=== PATIENT | female | born 1955 | race Native Hawaiian/Other Pacific Islander ===

== ENCOUNTER 2017-02-16 06:48 | Day surgery (SDC) | payer MEDICAID ==
[2017-02-16 07:16] VITALS: BMI 25.0
[2017-02-16] MEDS ORDERED: Propofol 10 mg/ml Inj (20 ML) ONE ×2 (10:25)
[2017-02-16] MEDS ORDERED: Lactated Ringer's 500 ML IV SCH (10:30)
[2017-02-16] MEDS ORDERED: Simethicone 40 mg/0.6 ml Liquid (30 ml) ONE (10:36)
[2017-02-16] MEDS ORDERED: Lactated Ringer's 1,000 ML IV ONE ×2 (11:07)
[2017-02-16 11:32] VITALS: TEMP 98.9
[2017-02-16 12:07] VITALS: RESP 15
[2017-02-16 12:08] VITALS: BP 122/70; PULSE 68; O2SAT 96
== END 2017-02-16 12:41 | disposition home or self-care (01) ==
LOC: C.ENDO 06:48
PROVIDERS: ATTEND Internal Medicine
DX: K29.70 Gastritis, unspecified, without bleeding (principal); I10 Essential (primary) hypertension; E78.5 Hyperlipidemia, unspecified; E05.90 Thyrotoxicosis, unspecified without thyrotoxic crisis or storm; K31.9 Disease of stomach and duodenum, unspecified
CPT/HCPCS: 43238; 88305; 88342; J2704; J3010; J7120